=== PATIENT | male | born 1990 | race Caucasian/White ===

== ENCOUNTER 2016-10-10 22:45 | Emergency (ER) | payer SELFPAY ==
[2016-10-11 01:21] VITALS: BP 127/54
== END 2016-10-11 01:21 | disposition home or self-care (01) ==
LOC: ED 22:45
DX: S61.032A Puncture wound without foreign body of left thumb without damage to nail, initial encounter (principal); W22.8XXA Striking against or struck by other objects, initial encounter; Y93.89 Activity, other specified; Y99.8 Other external cause status; Y92.89 Other specified places as the place of occurrence of the external cause
CPT/HCPCS: 90715; J0690